=== PATIENT | female | born 1960 | race African-American/Black ===

== ENCOUNTER 2022-08-03 16:36 | Outpatient (CLI) | payer BC | END 2022-08-03 16:37 | disposition home or self-care (01) | LOC: CSHLAB 16:36 | PROVIDERS: ATTEND Obstetrics & Gynecology | DX: Z01.818 Encounter for other preprocedural examination (principal) | CPT/HCPCS: 84703; 85027; 86850; 86900; 86901; 93005; 93010 ==

== ENCOUNTER 2022-08-06 10:01 | Day surgery (SDC) | payer BC ==
[2022-08-02 16:23] VITALS: BMI 47.1
[2022-08-03 17:36] LABS: Hemoglobin 12.9 g/dL (12.0-15.5); Mean Corpuscular HGB CONC 33.3 g/dL (32.0-36.0); Mean Corpuscular Hemoglobin 29.7 pg (27.0-33.0); Platelet Count 256 10x3/uL (150-450); RBC Distribution Width 13.3 % (11.5-14.5); Red Blood Cell (RBC) Count 4.35 10x6/uL (3.90-5.03); White Blood Cell (WBC) Count 5.8 10x3/uL (3.5-10.5)
[2022-08-03 18:34] LABS: BHCG - Serum Negative (NEGATIVE); Pregs Control Background? CLEAR/WHITE (CLR/WHITE); Pregs Control Bar Appear? YES (CONTROL BAR)
[2022-08-06] MEDS ORDERED: CeleCOXIB 100 MG CAP ONE (10:10)
[2022-08-06] MEDS ORDERED: Ondansetron PF 4 MG/2 ML Vial ONE (11:43)
[2022-08-06] MEDS ORDERED: Lidocaine 1% PF 5 ML VIAL ONE (11:43)
[2022-08-06] MEDS ORDERED: PROPOFOL 20 ML ONE (11:43)
[2022-08-06] MEDS ORDERED: Dexamethasone 20 MG/5 ML VIAL ONE (11:43)
[2022-08-06] MEDS ORDERED: Fentanyl 100 MCG/2 ML VIAL ONE ×2 (11:43→12:03)
[2022-08-06] MEDS ORDERED: Ketorolac Tromethamine 30 MG/ML VIAL ONE (11:43)
[2022-08-06] MEDS ORDERED: Midazolam HCl 2 mg/2 ml Vial ONE (11:43)
[2022-08-06] MEDS ORDERED: CEFAZOLIN 2 GM VIAL ONE (11:44)
== END 2022-08-06 13:40 | disposition home or self-care (01) ==
LOC: CSHSDC 10:01
PROVIDERS: ATTEND Obstetrics & Gynecology
PROC: 0UDB8ZZ Extraction of Endometrium, Via Natural or Artificial Opening Endoscopic (ICD-10-PCS; principal; 2022-08-06)
DX: N84.0 Polyp of corpus uteri (principal); N95.0 Postmenopausal bleeding; I10 Essential (primary) hypertension; E11.9 Type 2 diabetes mellitus without complications; M48.00 Spinal stenosis, site unspecified; M54.30 Sciatica, unspecified side; Z79.84 Long term (current) use of oral hypoglycemic drugs; Z79.899 Other long term (current) drug therapy; Z90.49 Acquired absence of other specified parts of digestive tract; Z98.890 Other specified postprocedural states
CPT/HCPCS: 84703; 85027; 86850; 86900; 86901; 88305; J1100; J1885; J2250; J2405; J2704; J3010

== ENCOUNTER 2023-02-26 09:58 | Outpatient (CLI) | payer BC | END 2023-02-26 09:59 | disposition home or self-care (01) | LOC: CSHWCC 09:58 | PROVIDERS: ATTEND Nurse Practitioner Family | DX: T81.89XD Other complications of procedures, not elsewhere classified, subsequent encounter (principal) | CPT/HCPCS: 97597 ==